=== PATIENT | female | born 1995 | race Caucasian/White ===

== ENCOUNTER 2016-05-06 09:49 | Emergency (ER) | payer OTHER ==
[~2016-05-06] VITALS: Ht 160 cm; Wt 65.0 kg
[2016-05-06 09:53] VITALS: BP 107/71; PULSE 80; RESP 15; O2SAT 99
--- NOTE | 2016-05-06 10:47 | ED.REPORT ---
HPI-Chest Pain Under 40 Date of Service May 06, 2016 ED Provider: Maria Esther Parada MD Mrs. Ivanna Cloud is a pleasant 20-year-old female , currently 7 weeks who presents to the [facility] emergency Department with complaints of one year intermittent sharp and tight chest pain that is not clearly positional or related to inspiration or ingestion of food. She reports her massages her right scapula it does seem to relieve pain. She reports the pain as 5 out of 10 tight with no radiation that seems to be located directly over the pectoralis muscle in the midclavicular line on the right side, and reports getting dizzy due to the pain. She has not tried taking ibuprofen, Tylenol or ice. She denies fever, chills, nausea, vomiting, headache, syncope, change of vision, shortness of breath, tachycardia or palpitations,, diarrhea. She reports constipation and intermittent right-sided chest pain. Nursing Notes Stated Complaint: CHEST PAIN Chief Complaint: Chest Pain-Non Cardiac Nature Nursing Notes Reviewed: Yes Allergies: Coded Allergies: Penicillins (Verified Allergy, Unknown, 03/18/14) Pineapple (Verified Allergy, Unknown, 05/11/14) Opioids - Morphine Analogues (Verified Adverse Reaction, Intermediate, NAUSEA, 03/18/14) General Time Seen by MD: 10:15 Chief Complaint Chest pain Hx Obtained From: Patient, Spouse Sudden in Onset?: No Past Medical History Past Medical History Spontaneous vaginal delivery 2 years ago Currently 7 weeks Smoking History Former Smoker Review of Systems A comprehensive review of systems was conducted with the patient and found to be negative except as above in the History of Present Illness. Physical Exam General: Young lady lying in bed in no acute distress, well-developed, well- nourished, appropriately interactive HEENT: Normocephalic, atraumatic. External ears without defect. Pupils equal, round, and reactive to light and accommodation. Anicteric sclerae, moist conjunctivae, and no lid lag. Oropharynx free of erythema and cobble stoning with moist mucosa. Neck: Supple with full range of motion. No jugular venous distension. No bruits. No lymphadenopathy or thyromegaly. Cardiovascular: Regular rate and rhythm with no murmurs, rubs, or gallops appreciated, sternum and ribs nontender to palpation. Pulmonary: Clear to auscultation bilaterally with no crackles, wheezes, or rhonchi. Normal respiratory effort with no use of accessory muscles. Abdomen: Bowel tones present. Soft, nontender, nondistended. No hepatosplenomegaly or masses appreciated. Extremities: No clubbing, cyanosis, edema, or lymphadenopathy appreciated. Skin: Normal temperature, turgor, and texture; no rash, ulcers, or subcutaneous nodules appreciated. Neurological: Cranial nerves grossly intact. Normal muscle strength, tone, and bulk. Reflexes, coordination, and sensory function within normal limits. No known gait impairment. Psychiatric: Normal mood and affect. Alert and oriented to person, place, and time. Initial Vital Signs Vital Signs (First) Date Time Temp Pulse Resp B/P Pulse Ox O2 Delivery O2 Flow Rate FiO2 05/06/16 09:53 36.3 80 15 107/71 99 Room Air Re-Eval/Medical Decision Med Decision/Clinical Course Mrs. Ivanna Cloud is a pleasant 20-year-old female , currently 7 weeks who presents to the [facility] emergency Department with complaints of one year intermittent sharp and tight chest pain that is not clearly positional or related to inspiration or ingestion of food. Patient reports her pain has been intermittent for the last year and during that time has been under a lot of stress at home. She reports nothing concerning that would indicate cardiac or pulmonary origin such as pleurisy, shortness of breath, exercise-induced chest pain, nausea, vomiting or radiating pain. She had an EKG with her primary care physician that was normal. She is here today wondering if she can have a chest x-ray or ultrasound of her chest to look for "pleurisy." It was explained to her that we would not see pleurisy on a chest x-ray or ultrasound and if this is most likely not a life-threatening condition. This is most likely musculoskeletal in origin and believe she would benefit from OMT. Discharge & Departure Primary Impression: Non-cardiac chest pain Disposition: Home Discharge Condition All VS Reviewed: Yes Condition: Stable Additional Instructions: During your visit to [facility] Emergency Department we preformed a physical exam and osteopathic manual manipulation. Your physical exam and history and presentation was reassuring. Believe the source of her pain is most likely muscular in origin. Do not hesitate to call emergency services or your primary care physician if you experience any of the following. -High unrelenting fevers. -Uncontrolled vomiting. -Severe hypertension. -Syncope or loss of consciousness. -Chest pain -Severe shortness of breath. -Uncontrolled sweating, nausea and vomiting. Follow up with your primary care physician in 1-2 weeks time following your emergency department visit for medication checks and general well-being. Referrals: Rene Magaña MD (PCP) Attending Statement Patient seen and examined. Agree with findings as above copies to: Rene Magaña MD, COREY P DO May 06, 2016 10:47 Maria Esther Parada MD May 06, 2016 11:37
== END 2016-05-06 11:05 | disposition home or self-care (01) ==
LOC: SED 09:49
DX: O26.891 Other specified pregnancy related conditions, first trimester (principal); R07.89 Other chest pain; R42 Dizziness and giddiness; O99.611 Diseases of the digestive system complicating pregnancy, first trimester; K59.00 Constipation, unspecified; Z3A.01 Less than 8 weeks gestation of pregnancy; Z87.891 Personal history of nicotine dependence; Z88.0 Allergy status to penicillin; Z88.5 Allergy status to narcotic agent; Z91.018 Allergy to other foods
CPT/HCPCS: 81025; 99283; G0463

== ENCOUNTER 2016-12-26 22:49 | Inpatient (IN) | payer OTHER ==
[~2016-12-26] VITALS: Ht 160 cm; Wt 76.7 kg
[2016-12-26] MEDS ORDERED: Lactated Ringer's 1,000 ML IV PRN (23:16)
[2016-12-26] MEDS ORDERED: Oxytocin 30 Units/500 mL LR 30 UNITS in IV Premix 1 EACH IV PRN (23:20)
[2016-12-26] MEDS ORDERED: Hemorrhage Kit, Post Partum XX ONE (23:20)
[2016-12-26] MEDS ORDERED: Methylergonovine 0.2 mg/mL Inj IM PRN (23:20)
[2016-12-26] MEDS ORDERED: Carboprost 250 mCg/mL Inj IM PRN (23:20)
[2016-12-26] MEDS ORDERED: Oxytocin 10 Unit/mL Inj IM PRN (23:20)
[2016-12-26] MEDS ORDERED: fentaNYL-PF 50 mCg/mL 2 mL Inj IVPUSH PRN (23:20)
[2016-12-26] MEDS ORDERED: Ondansetron 2 mg/mL 2 mL Inj IVPUSH PRN (23:20)
[2016-12-26] MEDS ORDERED: Sodium Chloride LOK Flush 10 mL Syringe IVFLUSH PRN (23:20)
[2016-12-26 23:28] LABS: Mean Corpuscular Hemoglobin 31.2 pg (27.0-35.0); Mean Corpuscular Volume 93.2 fL (81-100)
[2016-12-26] MEDS ORDERED: Lactated Ringer's 500 ML IV ONE (23:58)
[2016-12-27] MEDS ORDERED: fentaNYL 2 mCg/mL-Bupiv 0.125% 100 ML EPIDURAL SCH
[2016-12-27] MEDS ORDERED: Ondansetron 2 mg/mL 2 mL Inj IVPUSH PRN
[2016-12-27] MEDS ORDERED: Atropine 1 mg/10 mL (Code) Syringe IVPUSH PRN
[2016-12-27] MEDS ORDERED: EPHEDrine Sulfate 50 mg/mL Inj IVPUSH PRN
--- NOTE | 2016-12-27 00:01 | PCM.HPANE ---
Patient Data Surgeon Admitting Provider:Yu Fontana MD Attending Provider:Yu Fontana MD Primary Care Physician:Luis E Loredo Other Provider:Anaid Magana Anesthesia Reason for Visit Term Labor Check Ht/WT & BMI Body Mass Index Allergies Coded Allergies: Penicillins (Verified Allergy, Unknown, 03/18/14) Pineapple (Verified Allergy, Unknown, 05/11/14) Opioids - Morphine Analogues (Verified Adverse Reaction, Intermediate, NAUSEA, 03/18/14) Past Anesthesia History Anesthesia History: Denies:: Abnormal Airway, Difficult Intubation Diabetes History Hx Diabetes?: No History History of ENT Problems?: No HEENT History: Denies:: Abnormal Airway Difficult Intubation Denture Type: None Teeth Condition: Within Normal Limits Hx of Heart Problems?: No Cardiovascular History: Denies:: AICD Abdominal Aortic Aneurism Atrial Fibrillation Cardiac Surgery Chest Pain Congestive Heart Failure Coronary Artery Disease Edema Heart Murmur Hypertension Irregular Heartbeat Pacemaker Peripheral Vascular Rheumatic Fever Thrombophlebitis Valvular Heart Disease Hx of Respiratory Problem?: No Respiratory History: Denies:: Asthma COPD Chest Surgery Cough Dyspnea Emphysema Hemoptysis Oxygen Administration Pneumonia Pulmonary Embolism Tuberculosis Use of C-PAP Machine Use of Inhalers / NEBS Hx Neurologic Problems?: No Hx of GI Problems?: Yes Hx of Problems?: No Female Hx: Positive for:: Currently Hx Musculoskeletal Problems?: No Hx of Psycho/Social Problems?: Yes Psycho Social History: Positive for:: Hx Depression Hx Surgeries?: No Hx Diabetes: No Hx Alcohol Use: Yes Smoking Status: Former Smoker Stop/Bang Risk Assessment Category Category 1A: Patient has history of documented sleep apnea, and HAS NOT received any narcotic, sedative or anesthesia administration during this stay. Category 1B: Patient has history of documented sleep apnea, and HAS received any narcotic , sedative or anesthesia administration during this stay Category 2: Patient has SUSPECTED Obstructive Sleep Apnea, and HAS received any narcotic , sedative or anesthesia administration during this stay. Category 3: Patient has SUSPECTED Obstructive Sleep Apnea and HAS NOT received narcotic, sedative or anesthesia administration during this stay. Category 4: Outpatient in Procedural Areas with known sleep apnea or who screen positive for High Risk via the STOP/BANG questionnaire. Exam Exam General Appearance: Alert, Oriented X3 HEENT/AIRWAY: MP 2 Lungs: Clear to Auscultation, Clear to Percussion Heart: Exam Unremarkable, Regular Rate/Rhythm Meds/Labs/Diagnostics Labs Test 12/26/16 23:15 12/26/16 23:27 White Blood Count 10.9th/mm3 (3.8-10.1) Red Blood Count 3.81mil/mm3 (3.90-5.20) Hemoglobin 11.9g/dL (12.0-15.6) Hematocrit 35.5% (35.0-46.0) Mean Corpuscular Volume 93.2fL (81-100) Mean Corpuscular Hemoglobin 31.2pg (27.0-35.0) Mean Corpuscular Hemoglobin Concent 33.5% (32.0-37.0) Red Cell Distribution Width 15.1% (12.3-15.4) Platelet Count 237bil/L (150-400) Hold Urine Received (Received) Plan Impression Patient chart reviewed, patient interviewed and anesthestic plan with risks, benefits, and alternatives discussed, and informed consent obtained. ASA Physical Status: ASA2 Mod Systemic Disease Anesthetic Plan: Epidural Bene/Risks/Altern/Consents: Yes HP Complete Prior to Induction: Yes Jhony Manzano MD Dec 27, 2016 00:01
[2016-12-27] MEDS ORDERED: Sodium Chloride LOK Flush 10 mL Syringe IVFLUSH SCH (00:30)
[2016-12-27] MEDS: Lactated Ringer's 1,000 ML IV SCH ×3 (00:47→08:05)
--- NOTE | 2016-12-27 08:12 | PCM.HPOB ---
Subjective Date of Service: Dec 27, 2016 Referring Provider: Admitting Physician: Yu Fontana MD Primary Care Physician: Luis E Loredo Attending Physician: Yu Fontana MD Chief Complaint Active labor at 40+6 weeks History of Present History of Present Illness Patient is a pleasant 21-year-old who came to the center last evening in active labor. She has transferred medical care several times during the . She started out at [facility] then transferred to midwifery care and [place] but care has been sporadic regardless. Urine drug screen on admission was negative. She has used some marijuana sporadically during the . She reports good movement and onset of labor yesterday afternoon. On arrival she was 4 cm, 80% effaced and vertex presentation. heart rate was reactive in the 130s to 140s with good [id number] variability and membranes were intact. She was requesting an epidural at that time and that was placed around midnight and she has been resting comfortably overnight. At present vital signs have ranged between 110/60-86/65 heart rate 95-98 and temp is afebrile. Vaginal exam showed her to be 8 to 9 centimeters with a bulgy for bag and vertex was at -2 station. AROM was done for thick meconium stained amniotic fluid and following this she was noted to have cervix mostly between 7 and 2:00. Head seems somewhat asynclitic. heart rate remains reassuring and contractions are coming every 3-4 minutes. She is quite comfortable with the epidural. She delivered her first baby following a long labor but approximately one hour push and that baby weighed 9 lbs. 2 oz. She estimates this baby is around the same size and she denies any history of gestational diabetes. Vaginal delivery is anticipated at this point, and she would be a good candidate for laboring down until she feels the need to push. OB History: (2), Para (1), Term (1), Pre-term (0), ( 0), Living (1) Obstetrical Complications: None Past Medical History Obstetrical History: 1. Her first baby was born March 18, 2016 at 40 weeks +6 days following 58 hours of labor. She did have an epidural and had spontaneous vaginal delivery of a baby boy weighing 9 lbs. 2 oz. That baby and were healthy and his name is Dheeraj. 2. This is her second and current . Gynecologic History: She has had history of chlamydia in 2010 with occasional urinary tract infections. She has had history of ovarian cyst in 2012. She has previously used Depo-Provera, oral contraceptives and Nexplanon for control. She reports that her cycles are irregular. She did have first trimester ultrasound at 9 weeks in this confirming EDC of which also concurs with her LMP. Menarche was at the age of 11 and cycles are variable but typically last 5 days. She had not been on any contraception in the 90 days prior to this . Medical History: She has had history of chronic headaches with some migrainous features. She has history of childhood asthma. She has history of depression and anxiety with previous suicide attempt using Prozac. She had chickenpox in childhood. She has no history of infertility or abnormal Pap smears. Surgical History: Patient has not had any prior surgeries. Social History: Patient lives with her and has episodic use of marijuana. She denies tobacco or alcohol use. She is unemployed and her recently lost his job. Their child is with him in the room currently as she is laboring with several other supportive family members. Hx Tobacco Use: No Hx Alcohol Use: No Hx Substance Use: Yes Past Family History Living Arrangement: with Family Genetic Screening/Counseling Genetic Screening/Counseling: Unknown Review of Systems Constitutional: Y: Change of appitite, Chills, Fever Eyes: Denies: Blurred Vision, Vision Changes ENT: Denies: Dental Problems, Nasal Congestion, Nose Discharge, Throat Pain, Ulcers/Sores in Mouth Cardiovascular: Denies: Chest Pain Respiratory: Denies: Cough Gastrointestinal: Denies: Abdominal Pain, Constipation, Diarrhea, Nausea, Vomiting Genitourinary: Denies: Dysuria Musculoskeletal: Denies: Redness Skin/Breasts: Denies: Discharge Skin: Denies: Lesions Neurological: Denies: Change in Speech Psychologic: Denies: Agitation, Anxious, Apprehensive, Depression Hematologic: Denies: Adenopathy Allergy Coded Allergies: fluoxetine (Verified Allergy, Severe, suicidal idiation/attempt, 12/27/16) Penicillins (Verified Allergy, Unknown, 03/18/14) pineapple (Verified Allergy, Unknown, 05/11/14) Opioids - Morphine Analogues (Verified Adverse Reaction, Intermediate, NAUSEA, 03/18/14) Exam Vital Signs Blood pressure 86/54-110/60 range, heart rate 95-98 Constitutional: Well-developed, Well-nourished HEENT: PERRLA, EOMI, Mucous Membr Moist/[place] Lungs: Clear to Auscultation, Normal Air Movement Heart: Regular Rate/Rhythm, Normal S1, Normal S2, No Murmurs/Rubs/Gallops Abdomen: Gravid, Soft, No tenderness Lymphatic: Normal: Neck Palpation of Nodes Extremities: Pulses Palpable x4, Warm, No Edema Neurological/Psychiatric: Alert, Oriented X3, Cooperative, No Acute Distress Labs/Diagnostics Labs Review of records showed GBS swab to be negative. One-hour GTT was 103. Third trimester hemoglobin 10.5, hematocrit 31.9 and platelet count was 298. GC chlamydia testing was negative. A1c was 5.1%. CMP done in April 2016 was normal and TSH was 2.73 at that time. Blood type is O+ with no abnormal antibodies. RPR was nonreactive. Rubella is immune. Hep B surface antigen was negative. Pap was normal. No genetic testing was done apart from ultrasound. Maternal Blood Type: O Hx Rho(D) Immune Globulin: No Antibody Screen: negative Group B Strep Results: Negative Previous with GBS: No Rubella: Immune Lab History: Positive for: Hx Chicken Pox, Negative for: Hx Gonorrhea, Hx HIV, Hx Herpes, Hx Syphilis OB Intrapartum Assessment/Plan Assessment Patient is a pleasant 21-year-old in active labor with EDC by 9 week ultrasound of 12/21/2016. She has accessed care sporadically during between [facility] and [facility]. She presented to the center in active labor last evening at 4 cm and has received an epidural. Artificial rupture of membranes done at 8-9 cm confirmed vertex presentation at -2 station with thick meconium-stained amniotic fluid. heart rate is reactive and she is making reasonable progress through labor. Vaginal delivery is anticipated an estimated weigh is 8 1/2 to 9 pounds.t Problems: (1) with 41 completed weeks gestation Status: Acute ICD Code: Z3A.41 (2) Thick meconium stained amniotic fluid Status: Acute ICD Code: P96.83 Yu Fontana MD Dec 27, 2016 08:12
[2016-12-27] MEDS ORDERED: Lactated Ringer's 1,000 ML IV SCH (10:13)
[2016-12-27] MEDS ORDERED: Benzocaine (Dermoplast) 20% 60 Gm Spray TOPICAL PRN (10:15)
[2016-12-27] MEDS ORDERED: Oxytocin 10 Unit/mL Inj IM PRN (10:15)
[2016-12-27] MEDS ORDERED: LANOlin HPA 7 Gm Ointment TOPICAL PRN (10:15)
[2016-12-27] MEDS ORDERED: Witch Hazel-Glycerin Pads TOPICAL PRN (10:15)
[2016-12-27] MEDS ORDERED: Carboprost 250 mCg/mL Inj IM PRN (10:15)
[2016-12-27] MEDS ORDERED: Oxytocin 30 Units/500 mL LR 30 UNITS in IV Premix 1 EACH IV PRN (10:15)
[2016-12-27] MEDS ORDERED: Hemorrhage Kit, Post Partum XX ONE (10:15)
[2016-12-27] MEDS ORDERED: Methylergonovine 0.2 mg/mL Inj IM PRN (10:15)
--- NOTE | 2016-12-27 10:26 | PCM.OBVAG ---
Vaginal Delivery Date of Service Dec 27, 2016 Pre Operative Diagnosis Pre Operative Diagnosis 1. at 41 weeks gestational age with spontaneous labor 2. Thick meconium staining to the amniotic fluid 3. Epidural analgesia 4. Spontaneous vaginal delivery of a live born female over intact perineum Post Operative Diagnosis Post Operative Diagnosis 1. at 41 weeks gestational age with spontaneous labor 2. Thick meconium staining to the amniotic fluid 3. Epidural analgesia 4. Spontaneous vaginal delivery of a live born female infant over intact perineum Procedure Obstetical Procedure: Normal Spontaneous Vaginal Delivery Assistant Chief Engineer/Collections Director Provider and Collections Director: Dr. Bridget Gee, PGY 2 Dr. Yu Fontana Indication for Procedure Induction: Active labor, AROM, Progressed normally through labor Findings Obstetrical Findings: [place] (Female), Cord (3 Vessel), Presentation (SHERIDAN), 1 minute (9), 5 minutes (9), Placenta (Intact/Normal) Analgesia/Medications Obstetrical Anesthesia: Epidural Procedure Details Procedure Details Patient is a pleasant 21-year-old who has had sporadic care and started in the with [facility] are then transferred to the [facility] in the last month. She wanted epidural for labor and came to the center last evening and was 4 cm on arrival. Epidural was placed and she made good progress overnight. Artificial rupture of membranes was done this morning for thick meconium staining to the amniotic fluid and patient was 8-9 cm at that point with an asynclitic head but vertex presentation. heart rate baseline was in the 130s to 140s with good [id number]-[id number] variability. Her first stage of labor was approximately 17 hours, second stage was 11 minutes, and third stage was 4 minutes. She went onto spontaneous vaginal delivery of a live born female infant. there was no nuchal cord. Baby's head did turtle on the perineum and mother's hips were brought to the edge of the mattress, and her legs were flexed and she pushed. This did not affect descent of the anterior shoulder. I placed my hand in the vagina and gently deliver the baby' s posterior arm at which point the rest of the body came nicely. Baby was not initially crying but was placed onto the maternal abdomen. Cord was clamped at around 30 seconds and baby was handed off to pediatrics. At that point baby was crying vigorously and did not require any IPPV assist or oxygen. Baby's scores were 9 at 1 minute and 9 at 5 minutes. Placenta delivered intact with a three-vessel cord but membranes were trailing and an additional length of membrane was gently teased out of the cervix. The vaginal vault and cervix were carefully examined at that point and no further trailing membranes were noted. Estimated blood loss at time of delivery was 250 mils. Mother's perineum was intact and she is intending to breast-feed. Cordstat will be sent on the baby but mother's initial urine drug screen was negative. Baby care is to pediatrics. Specimen Placenta was for routine disposal Blood Loss & Administration Estimated Blood Loss: 250 Blood Admin during procedure: No Post Procedure Plan Post delivery Condition: Mom Yu Wood MD Dec 27, 2016 10:26
--- NOTE | 2016-12-27 15:59 | NUR ---
3pm 12/27/2106 Family Assessment Ivanna Cloud is a 21 yo female who was referred to [facility] for assessment by Family & Labor healthcare team. 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 While pt has a negative Utox for substances, she does report she used THC for pain killing as I have migraines. Pt lives w/ the FOB Marcelo Cloud who is the active participating father and their 2 yo son, Dheeraj. Dheeraj reportedly goes to [facility] for his medical care and pt reports she wants JESSIE Díaz, who was born just hours ago, to go to as well. Pt reports no barriers to prevent her from putting this care in place prior to Bridgett arrival, but did say, I was just waiting to get around to it. Pt denies any CPS involvement. Pt reported THC use for pain killing, 2x, during due to her migraines. Pt reports that she has WIC, gets $140 EBT, and her spouse has just found a full employment. Pt adds that she and her spouse have loving supportive family in the local area who are active in their life. FOB reports he is and will continue to be a supportive, participating presence in the lives of their children and his spouse. Regarding healthcare, or special needs the pt reports none at this time except that she also wants Jessie to go and receive her care through [facility] as her son Dheeraj has. An account was created on behalf of the and an intake appointment was set up for Friday12/30/2016 at 11AM at [facility] at [address] [place] [address] [phone] . Pt was informed that she would need to contact [facility] to set up Bridgett state insurance as she would only be covered for her first 21 days under the mothers insurance. While the pt appears healthy and fully supported due to pts admission of THC use while a CPS referral was made at 5:20 :pm w/ information screened in. Pt and staff are aware.
[2016-12-28 06:48] LABS: Mean Corpuscular Hemoglobin 30.5 pg (27.0-35.0); Mean Corpuscular Volume 95.2 fL (81-100)
[2016-12-28] MEDS ORDERED: HYDROcodone-APAP 5-325 mg Tablet PO ONE (09:20)
--- NOTE | 2016-12-28 12:04 | PCM.DC.OB ---
Obstetrical Discharge Summary Date of Service Dec 28, 2016 Date of hospital admission Dec 26, 2016 at 23:01 Date of Discharge: Dec 28, 2016 Providers Admitting Physician: Yu Fontana MD Primary Care Physician: Luis E Loredo Attending Physician: Yu Fontana MD Diagnosis at Time of Discharge 1. at 40 weeks +6 days with spontaneous labor 2. Thick meconium staining to the amniotic fluid 3. Epidural analgesia 4. Spontaneous vaginal delivery of a liveborn female over an intact perineum Problems: (1) with 41 completed weeks gestation Status: Acute ICD Code: Z3A.41 (2) Thick meconium stained amniotic fluid Status: Acute ICD Code: P96.83 (3) (normal spontaneous vaginal delivery) Status: Acute ICD Code: O80 Brief History and Physical: Patient is a pleasant 21-year-old who came to the center last evening in active labor. She has transferred medical care several times during the . She started out at [facility] then transferred to midwifery care and [facility] but care has been sporadic regardless. Urine drug screen on admission was negative. She has used some marijuana sporadically during the . She reports good movement and onset of labor yesterday afternoon. On arrival she was 4 cm, 80% effaced and vertex presentation. heart rate was reactive in the 130s to 140s with good [id number]-pmuy variability and membranes were intact. She was requesting an epidural at that time and that was placed around midnight and she has been resting comfortably overnight. At present vital signs have ranged between 110/60-86/65 heart rate 95-98 and temp is afebrile. Vaginal exam showed her to be 8 to 9 centimeters with a bulgy for bag and vertex was at -2 station. AROM was done for thick meconium stained amniotic fluid and following this she was noted to have cervix mostly between 7 and 2:00. Head seems somewhat asynclitic. heart rate remains reassuring and contractions are coming every 3-4 minutes. She is quite comfortable with the epidural. She delivered her first baby following a long labor but approximately one hour push and that baby weighed 9 lbs. 2 oz. She estimates this baby is around the same size and she denies any history of gestational diabetes. Vaginal delivery is anticipated at this point, and she would be a good candidate for laboring down until she feels the need to push. Hospital Course: Patient is a pleasant 21-year-old who presented to the center in active labor at 40 weeks +6 days. Thick meconium was noted in the amniotic fluid on AROM at 8-9 cm. heart rate was reactive throughout labor and delivery with baseline in the 130s to 140s in good [id number] variability. Mother had an epidural which worked well for her in labor. Her first stage of labor was approximately 17 hours, second stage XI minutes, third stage was 4 minutes. She went on to spontaneous vaginal delivery of a liveborn female infant weighing 9 pounds and 4 ounces over an intact perineum. Baby's head did turtle on the perineum and mother's hips were pulled to the edge of the bed and her legs were flexed and she made good pushing efforts. She was coached through her pushing and I placed my hand in the vagina and delivered the posterior shoulder first at that point the rest of the baby came nicely. Baby was handed off to the maternal abdomen and cord was clamped after approximately 20-30 seconds as baby was not breathing well and baby was handed to pediatrics. Placenta delivered intact with trailing membranes and had a three-vessel cord. Cervix and vagina was carefully examined and membranes appeared to be completely delivered. Estimated blood loss at time of delivery was around 250 mils. In the mother has been doing well and is bonding with her baby. She is breast-feeding comfortably. Vital signs have been stable. She has been having after pains and pain control has been reasonably managed with ibuprofen and Tylenol and occasional Vicodin. She feels ready to go home later today. She has good extended family supports. Vital signs today showed blood pressure 91/44 -107/71, heart rate 78-86, and temperature was 36.3-36.6. Chest is clear throughout with normal respiratory effort heart sounds normal sinus rhythm with no murmurs breasts are soft nipples everted nipples are intact. Fundus is firm at the umbilicus and her perineum was clean and intact she has no ankle edema. Labs show hemoglobin of 11.9 on admission down to 10.8 today, platelet count 237 down to 182 and hematocrit was 35.5 down to 33.7. Discharge Diet: No restrictions Discharge Activity-General: Pelvic Rest for 6 weeks, Pelvic Rest, Try not to overdue, Be up and about, Balance rest and activity, Activity as pain allows, Activity as energy allows Patient instructions Please observe vaginal rest for the next 6 weeks while your uterus and body are healing. Please contact my office at for exam which should be around 6 weeks. Please breast-feed on demand and I recommend nursing at least every 2-3 hours until your breast milk as well in and baby is growing nicely. Yu Fontana MD Dec 28, 2016 12:04
--- NOTE | 2016-12-28 12:12 | PCM.DIOB ---
Obstetrical Disch Instruction Date of Service: Dec 28, 2016 Dates of Hospitalization Date of Hospital Admission Dec 26, 2016 at 23:01 Providers Admitting Physician: Yu Fontana MD Primary Care Physician: Luis E Loredo Attending Physician: Yu Fontana MD Discharge Diagnosis Discharge Diagnosis 1. of 40 weeks +6 days with spontaneous labor 2. Thick meconium staining to the amniotic fluid 3. Epidural analgesia 4. Spontaneous vaginal delivery of a liveborn female over an intact perineum. Problems: (1) with 41 completed weeks gestation Status: Acute ICD Code: Z3A.41 (2) Thick meconium stained amniotic fluid Status: Acute ICD Code: P96.83 (3) (normal spontaneous vaginal delivery) Status: Acute ICD Code: O80 Diet Discharge Diet: No restrictions Activity Discharge Activity-General: Pelvic Rest for 6 weeks, Try not to overdue, Be up and about, Balance rest and activity, Activity as pain allows, Activity as energy allows Additional Instructions Discharge Instructions Please observe vaginal rest for the next 6 weeks while your uterus and body are healing. Please contact my office at for exam which should be around 6 weeks. Please breast-feed on demand and I recommend nursing at least every 2-3 hours until your breast milk as well in and baby is growing nicely. Follow Up Plan Follow-up Provider (F9): Yu Fontana MD Follow-up appointment: Weeks (6) Call your provider for: Fever or Chills, Shortness of breath, Heavy vaginal bleeding, Epigastric pain, Excessive constipation, Vaginal discomfort, Red painful breasts Yu Fontana MD Dec 28, 2016 12:12
[2016-12-28] MEDS ORDERED: IBUP800T28 PO (12:13)
[2016-12-28] MEDS ORDERED: HYDR-4003 PO (12:14)
[2016-12-28 13:07] VITALS: BP 107/71; PULSE 86; RESP 18
== END 2016-12-28 13:15 | disposition home or self-care (01) | DRG 775 ==
LOC: FBCO 22:49 → FBC 23:01
PROVIDERS: ADMIT Family Medicine; ATTEND Family Medicine
PROC: 10E0XZZ Delivery of Products of Conception, External Approach (ICD-10-PCS; principal; 2016-12-27)
PROC: 10907ZC Drainage of Amniotic Fluid, Therapeutic from Products of Conception, Via Natural or Artificial Opening (ICD-10-PCS; 2016-12-27)
DX: O77.0 Labor and delivery complicated by meconium in amniotic fluid (principal); O99.324 Drug use complicating childbirth; F12.90 Cannabis use, unspecified, uncomplicated; Z3A.41 41 weeks gestation of pregnancy; Z37.0 Single live birth